=== PATIENT | male | born 1975 | race Caucasian/White ===

== ENCOUNTER 2018-03-12 16:56 | Emergency (ER) | payer SELFPAY ==
[~2018-03-12] VITALS: Ht 172.7 cm; Wt 159.0 kg
[2018-03-12 16:58] VITALS: Ht 172.7 cm; Wt 159.0 kg
[2018-03-12] MEDS ORDERED: LIDOCAINE 1%/EPI 30 ML INJ INJ STA (17:29)
[2018-03-12] MEDS ORDERED: LIDOCAINE 1%/EPI (1:100,000) (MDV) 20 ML INJ ONE (18:00)
--- NOTE | 2018-03-12 18:08 | ERD ---
ER Documentation Chief Complaint Chief Complaint pt bib friend with c/o left leg varicose vein bleeding , no active bleeding HPI This 42-year-old male presents with left leg bleeding starting today. He has a history of varicose veins. He denies any history of trauma. ROS All systems reviewed and are negative except as per history of present illness. Allergies Allergies: Coded Allergies: No Known Allergy (Unverified , 03/12/18) PMhx/Soc Medical and Surgical Hx: pt denies Medical Hx, pt denies Surgical Hx Hx Alcohol Use: Yes Hx Substance Use: No Hx Tobacco Use: Yes (marijuana) Smoking Status: Current some day smoker FmHx Family History: No diabetes, No coronary disease, No other Physical Exam Vitals Vital Signs Date Temp Pulse Resp B/P (MAP) Pulse Ox O2 O2 Flow FiO2 Time Delivery Rate 03/12/18 98.9 110 18 169/77 98 16:58 (107) Physical Exam Const: No acute distress Head: Atraumatic Eyes: Normal Conjunctiva ENT: Normal External Ears, Nose and Mouth. Neck: Full range of motion. No meningismus. Resp: Clear to auscultation bilaterally Cardio: Regular rate and rhythm, no murmurs Abd: Soft, non tender, non distended. Normal bowel sounds Skin: No petechiae or rashes. Left lateral popliteal area with varicose veins with active bleeding which appears venous although is squirting significant pressure. Back: No midline or flank tenderness Ext: No cyanosis, or edema Neur: Awake and alert Psych: Normal Mood and Affect Results 24 hrs Current Medications Medications Dose Sig/Manolo Start Time Status Last (Trade) Ordered Route PRN Stop Time Admin Dose Reason Admin Lidocaine/ 30 ml ONCE STAT 03/12/18 DC Epinephrine INJ 17:29 (Xylocaine 03/12/18 17:31 1%/ Epi (Pf)) Lidocaine/ 30 ml ONCE ONCE 03/12/18 DC Epinephrine INJ 18:00 (Xylocaine 03/12/18 18:01 1%/ Epi (Mdv) 20 ml) Procedures/MDM Patient presents with signs and symptoms of a bleeding left leg varicose veins. Procedure note-area was prepped with Betadine. 2 cc lidocaine was used for local filtration. One [id number] as well as 1 interrupted suture was used for hemostasis. Hemostasis was obtained and pressure dressing was applied. She will be discharged home with recommendations for 2-day wound check in 7 days suture removal. Treatment options for varicose veins were discussed as this condition may be recurrent was counseled. He is advised to see his primary doctor for evaluation for general surgery for definitive treatment such as laser, injection, removal, etc. Current signs or symptoms to suggest DVT, infection, additional complications. Departure Diagnosis: Primary Impression: Varicose vein of leg Varicose vein complication: unspecified Laterality: left Qualified Codes: I83.92 - Asymptomatic varicose veins of left lower extremity Additional Impression: Active bleeding Condition: Stable Patient Instructions: Varicose Veins Additional Instructions: Recheck for redness, swelling, fevers. Recommend suture removal in 1 week. Recommend primary doctor or general surgery for evaluation for varicose vein rem oval or treatment. STEPAN NIXON MD Mar 12, 2018 18:08
== END 2018-03-12 19:52 | disposition home or self-care (01) ==
LOC: FTE 16:56
DX: I83.92 Asymptomatic varicose veins of left lower extremity (principal); F17.210 Nicotine dependence, cigarettes, uncomplicated